=== PATIENT | female | born 1995 | race Caucasian/White ===

== ENCOUNTER → 2021-03-09 | Outpatient (CLI) | payer OTHER ==
--- NOTE | 2021-03-09 14:35 | USB ---
Reason for exam: clinical finding. History: Took hormonal contraceptives for 10 years. Physical Findings: Nurse did not find any significant physical abnormalities on exam. US Breast BILAT Right complete breast ultrasound includes all four quadrants, the retroareolar region and axilla. Finding demonstrates no cystic or solid lesion seen. Left complete breast ultrasound includes all four quadrants, the retroareolar region and axilla. Finding demonstrates no cystic or solid lesion seen. These results were verbally communicated with the patient and result sheet given to the patient on 03/09/21. ASSESSMENT: Negative, BI-RAD 1 RECOMMENDATION: Routine screening mammogram of both breasts at age 40. (unless clinical indication to start sooner) Manage on a clinical basis with regard to white nipple discharge. If clear or bloody spontaneous discharge from a single port on the nipple, further evaluation can be performed.
--- NOTE | 2021-03-09 17:32 | XR ---
EXAMINATION TYPE: XR foot complete bilateral DATE OF EXAM: 03/09/2021 Comparison: None Clinical History: 25-year-old female M79.671Pain in right foot TECHNIQUE: 3 views each side Findings: Joint spaces are maintained. No acute fracture, subluxation, or dislocation. No periostitis or osteol ysis. Normal variant os supra naviculare on the left. Smooth delineation to the Achilles tendon. Subt alar joints are aligned. On the oblique view of the right foot, there is questionable osteochondral lesion along the talar dom e. Impression: No acute osseous abnormality seen within either foot. Recommend dedicated views of the right ankle to exclude an osteochondral lesion of the talar dome.
--- NOTE | 2021-03-10 09:55 | P.ARTDOP ---
Arterial Doppler LOWER EXTREMITY ARTERIAL DOPPLER: DATE OF SERVICE: 03/09/2021 Reason for study: Bilateral foot pain. Doppler waveforms: Multiphasic bilaterally throughout. Pulse volume recording: []. Pressure gradients: None. Ankle-brachial indices: Greater than 1 bilaterally. Toe brachial indices: [] on the right, [] on the left Impression: Normal study..
== END | disposition home or self-care (01) ==
LOC: RADUSWWP 13:45
PROVIDERS: ATTEND Family Medicine
DX: N64.52 Nipple discharge (principal); M79.672 Pain in left foot; M79.671 Pain in right foot
CPT/HCPCS: 93922

== ENCOUNTER → 2024-04-23 | Outpatient (CLI) | payer OTHER ==
[2024-04-23 16:07] LABS: Basophils # (A) 0.1 k/uL (0-0.2); Basophils % (A) 1 %; Eosinophils # (A) 0.4 k/uL (0-0.7); Eosinophils % (A) 5 %; HCT 47.5 % (34.0-46.0); HGB 15.3 gm/dL (11.4-16.0); Lymphocytes # (A) 2.1 k/uL (1.0-4.8); Lymphocytes % (A) 23 %; MCH 31.8 pg (25.0-35.0); MCHC 32.2 g/dL (31.0-37.0); MCV 98.9 fL (80.0-100.0); Mean Platelet Volume 8.7; Monocytes # (A) 0.4 k/uL (0-1.0); Monocytes % (A) 5 %; Neutrophils # (A) 6.2 k/uL (1.3-7.7); Neutrophils % (A) 66 %; Platelet Count 228 k/uL (150-450); RDW 11.9 % (11.5-15.5); WBC 9.5 k/uL (3.8-10.6)
[2024-04-23 16:31] LABS: Partial Thromboplastin Time 24.2 sec (22.0-30.0)
[2024-04-23 16:42] LABS: Bilirubin,Urine Negative (Negative); Blood,Urine Negative (Negative); Glucose,Urine (UA) Negative (Negative); Ketones,Urine Negative (Negative); Leukocyte Esterase,Urine Negative (Negative); Nitrite,Urine Negative (Negative); Protein,Urine Negative (Negative); Urobilinogen,Urine <2.0 mg/dL (<2.0)
[2024-04-23 16:52] LABS: Appearance,Urine Clear (Clear); Color,Urine Colorless; Specific Gravity,Urine 1.003 (1.001-1.035)
[2024-04-24 03:03] LABS: ALT 12 U/L (8-44); AST 15 U/L (13-35); Albumin 4.6 g/dL (3.8-4.9); Alkaline Phosphatase 63 U/L (41-126); BUN/Creat Ratio 23.25 Ratio (12.00-20.00); Blood Urea Nitrogen 18.6 mg/dL (9.0-27.0); Calcium 9.4 mg/dL (8.7-10.3); Cancer Antigen 125 7.9 U/mL (0.0-30.1); Carbon Dioxide 20.8 mmol/L (21.6-31.8); Chloride 102 mmol/L (96-109); Chol/HDL Ratio 2.86 Ratio; Globulin 2.3 g/dL (1.6-3.3); Glucose 81 mg/dL (70-110); HCG,Quantitative Serum <3.0 mIU/mL (0.0-6.0); LDL Cholesterol,Calculated 96.5 mg/dL (0.0-131.0); Lipase 28 U/L (14-63); Sodium 137 mmol/L (135-145); Total Bilirubin 0.3 mg/dL (0.3-1.2); Total Protein 6.9 g/dL (6.2-8.2); VLDL Calculation 11.42 mg/dL (5.00-40.00)
[2024-04-24 03:35] LABS: % Iron Saturation 21.77 (12.00-45.00); Iron 81 UG/DL (50-170); T4, Free (Free Thyroxine) 1.15 ng/dL (0.80-1.80); Total Iron Binding Capacity 372 UG/DL (228-460)
[2024-04-24 03:58] LABS: Erythrocyte Sedimentation Rate 17 mm/Hr (0-20)
[2024-04-24 04:01] LABS: Follicle Stimulating Hormone 3.7 mIU/mL
[2024-04-24 05:28] LABS: Gliadin AB IgA, Deaminated Negative (Negative); Gliadin AB IgA, Unit 3.4 U/mL; Gliadin AB IgG, Deaminated Negative (Negative); Gliadin AB IgG, Unit <0.4 U/mL
== END | disposition home or self-care (01) ==
LOC: LABWHC1 15:25
PROVIDERS: ATTEND Family Medicine
DX: N64.3 Galactorrhea not associated with childbirth (principal); E66.9 Obesity, unspecified; R14.0 Abdominal distension (gaseous); R60.0 Localized edema; R23.2 Flushing; R70.0 Elevated erythrocyte sedimentation rate; R58 Hemorrhage, not elsewhere classified
CPT/HCPCS: 36415; 80053; 80061; 81003; 81025; 82668; 83001; 83002; 83036; 83516; 83520; 83540; 83550; 83690; 84146; 84439; 84443; 84702; 85025; 85379; 85652; 85730; 86304; 86316; 87086

== ENCOUNTER 2024-07-14 15:00 | Emergency (ER) | payer OTHER ==
[2024-07-14 15:17] VITALS: TEMP 98
[2024-07-14 16:28] LABS: Basophils # (A) 0.1 k/uL (0-0.2); Basophils % (A) 1 %; Eosinophils # (A) 0.1 k/uL (0-0.7); Eosinophils % (A) 1 %; HCT 39.6 % (34.0-46.0); HGB 13.3 gm/dL (11.4-16.0); Lymphocytes # (A) 1.6 k/uL (1.0-4.8); Lymphocytes % (A) 17 %; MCH 32.3 pg (25.0-35.0); MCHC 33.7 g/dL (31.0-37.0); MCV 95.8 fL (80.0-100.0); Mean Platelet Volume 8.3; Monocytes # (A) 0.4 k/uL (0-1.0); Monocytes % (A) 4 %; Neutrophils # (A) 7.3 k/uL (1.3-7.7); Neutrophils % (A) 77 %; Platelet Count 249 k/uL (150-450); RBC 4.13 m/uL (3.80-5.40); RDW 12.7 % (11.5-15.5); WBC 9.5 k/uL (3.8-10.6)
[2024-07-14 16:29] LABS: Appearance,Urine Clear (Clear); Bilirubin,Urine Negative (Negative); Blood,Urine Negative (Negative); Color,Urine Colorless; Glucose,Urine (UA) Negative (Negative); Ketones,Urine Trace (Negative); Leukocyte Esterase,Urine Negative (Negative); Nitrite,Urine Negative (Negative); PH, Urine 5.5 (5.0-8.0); Protein,Urine Negative (Negative); Specific Gravity,Urine 1.006 (1.001-1.035); Urobilinogen,Urine <2.0 mg/dL (<2.0)
[2024-07-14 16:39] LABS: ALT 13 U/L (4-34); AST 20 U/L (14-36); African American GFR (CKD) >90 (>60 ml/min/1.73 sqM); Albumin 3.8 g/dL (3.5-5.0); Alkaline Phosphatase 49 U/L (38-126); Anion Gap 6 mmol/L; Blood Urea Nitrogen 13 mg/dL (7-17); Calcium 9.1 mg/dL (8.4-10.2); Carbon Dioxide 23 mmol/L (22-30); Chloride 108 mmol/L (98-107); Glucose 86 mg/dL (74-99); Non-African American GFR(CKD) >90 (>60 ml/min/1.73 sqM); Potassium 3.9 mmol/L (3.5-5.1); Sodium 137 mmol/L (137-145); Total Bilirubin 0.3 mg/dL (0.2-1.3); Total Protein 6.2 g/dL (6.3-8.2)
--- NOTE | 2024-07-14 16:58 | ED ---
Female Urogenital HPI - General Chief complaint: Vaginal Bleeding Stated complaint: Vaginal bleeding Time Seen by Provider: 07/14/24 15:00 Source: patient, RN notes reviewed Mode of arrival: ambulatory Limitations: no limitations - History of Present Illness Initial comments: 28-year-old G1, P0 female at approximately 6 weeks gestation presenting to the ER for vaginal bleeding. States she had a positive test last week. 3 days ago. States she had a heavy amount of vaginal bleeding with abdominal cramps. She believes she had a miscarriage. She reports she is no longer vaginally bleeding. She is currently asymptomatic. - Related Data Allergies Allergy/AdvReac Type Severity Reaction Status Date / Time No Known Allergies Allergy Verified 07/14/24 15:17 Review of Systems ROS Statement: Those systems with pertinent positive or pertinent negative responses have been documented in the HPI. ROS Other: All systems not noted in ROS Statement are negative. Past Medical History History of Any Multi-Drug Resistant Organisms: None Reported Smoking Status: Never smoker Past Alcohol Use History: None Reported Past Drug Use History: None Reported General Exam Limitations: no limitations General appearance: alert, in no apparent distress Head exam: Present: atraumatic, normocephalic, normal inspection Eye exam: Present: normal appearance, PERRL, EOMI. Absent: scleral icterus, conjunctival injection, periorbital swelling Neck exam: Present: normal inspection. Absent: tenderness, meningismus, lymphadenopathy Respiratory exam: Present: normal lung sounds bilaterally. Absent: respiratory distress, wheezes, rales, rhonchi, stridor Cardiovascular Exam: Present: regular rate, normal rhythm, normal heart sounds. Absent: systolic murmur, diastolic murmur, rubs, gallop, clicks GI/Abdominal exam: Present: soft, normal bowel sounds. Absent: distended, tenderness, guarding, rebound, rigid Neurological exam: Present: alert, oriented X3 Psychiatric exam: Present: normal affect, normal mood Skin exam: Present: warm, dry, intact, normal color. Absent: rash Course Vital Signs 07/14/24 15:15 Temperature 98 F Pulse Rate 97 Respiratory 16 Rate Blood Pressure 119/75 O2 Sat by Pulse 100 Oximetry Medical Decision Making - Medical Decision Making Was pt. sent in by a medical professional or institution (, PA, TECHNICAL FELLOW, urgent care, hospital, or snf...) When possible be specific @ -No Did you speak to anyone other than the patient for history (EMS, parent, family, police, friend...)? What history was obtained from this source @ -No Did you review nursing and triage notes (agree or disagree)? Why? @ -I reviewed and agree with nursing and triage notes Were old charts reviewed (outside hosp., previous admission, EMS record, old EKG, old radiological studies, urgent care reports/EKG's, snf records)? Report findings @ -No old charts were reviewed Differential Diagnosis (chest pain, altered mental status, abdominal pain women, abdominal pain men, vaginal bleeding, weakness, fever, dyspnea, syncope, headache, dizziness, GI bleed, back pain, seizure, CVA, palpatations, mental health, musculoskeletal)? @ -Differential Vaginal Bleeding: Spontaneous , threatened , molar , ectopic , bloody show, incompetent cervix, abruptioplacenta, placenta previa, uterine rupture, dysfunctional uterine bleeding, hemorrhage, uterine fibroi ds, this is not meant to be an all-inclusive list. EKG interpreted by me (3pts min.). @ -None X-rays interpreted by me (1pt min.). @ -None done CT interpreted by me (1pt min.). @ -None done U/S interpreted by me (1pt. min.). @ -Ultrasound revealed single live intrauterine What testing was considered but not performed or refused? (CT, X-rays, U/S, labs)? Why? @ -None What meds were considered but not given or refused? Why? @ -None Did you discuss the management of the patient with other professionals (professionals i.e. , PA, TECHNICAL FELLOW, lab, RT, psych nurse, social services manager, blood bank specialist, teacher, child support officer, heel caser)? Give summary @ -No Was smoking cessation discussed for >3mins.? @ -No Was critical care preformed (if so, how long)? @ -No Were there social determinants of health that impacted care today? How? (Homelessness, low income, unemployed, alcoholism, drug addiction, [place] sportation, low edu. Level, literacy, decrease access to med. care, half-way, rehab)? @ -No Was there de-escalation of care discussed even if they declined (Discuss DNR or withdrawal of care, Hospice)? DNR status @ -No What co-morbidities impacted this encounter? (DM, HTN, Smoking, COPD, CAD, Cancer, CVA, ARF, Chemo, Hep., AIDS, mental health diagnosis, sleep apnea, morbid obesity)? @ -None Was patient admitted / discharged? Hospital course, mention meds given and route, prescriptions, significant lab abnormalities, going to OR and other pertinent info. @ -Patient was discharged. Patient was seen and evaluated for vaginal bleeding at approximately 6 weeks gestation. Patient is currently asymptomatic. Vital signs are within normal limits. Abdomen is nontender to palpation. Lab work including CBC, CMP, lactic acid is unremarkable. Beta hCG is 93,261. Transvaginal ultrasound revealed live intrauterine at approximately 6 weeks gestation. Urine is negative. Blood type is A-. Discussed diagnosis of threatened miscarriage with patient. RhoGAM given. Advised follow-up in 2 days with OB For repeat beta hCG levels. Patient is agreeable. Return precautions discussed. Case was discussed with my ED attending Dr. Pickard. Patient discharged in stable condition Undiagnosed new problem with uncertain prognosis? @ -No Drug Therapy requiring intensive monitoring for toxicity (Heparin, Nitro, Insulin, Cardizem)? @ -No Were any procedures done? @ -No Diagnosis/symptom? @ -Threatened Acute, or Chronic, or Acute on Chronic? @ -Acute Uncomplicated (without systemic symptoms) or Complicated (systemic symptoms)? @ -Uncomplicated Side effects of treatment? @ -No Exacerbation, Progression, or Severe Exacerbation? @ -No Poses a threat to life or bodily function? How? (Chest pain, [place], [place], pneumonia, PE, COPD, DKA, ARF, appy, cholecystitis, CVA, Diverticulitis, Homicidal, Suicidal, threat to staff... and all critical care pts) @ -No - Lab Data Result diagrams: 07/14/24 16:22 07/14/24 16:22 Lab Results 07/14/24 07/14/24 07/14/24 Range/Units 16:22 16:22 16:22 WBC (3.8-10.6) k/uL RBC (3.80-5.40) m/uL Hgb (11.4-16.0) gm/dL Hct (34.0-46.0) % MCV (80.0-100.0) fL MCH (25.0-35.0) pg MCHC (31.0-37.0) g/dL RDW (11.5-15.5) % Plt Count (150-450) k/uL MPV Neutrophils % % Lymphocytes % % Monocytes % % Eosinophils % % Basophils % % Neutrophils # (1.3-7.7) k/uL Lymphocytes # (1.0-4.8) k/uL Monocytes # (0-1.0) k/uL Eosinophils # (0-0.7) k/uL Basophils # (0-0.2) k/uL Sodium 137 (137-145) mmol/L Potassium 3.9 (3.5-5.1) mmol/L Chloride 108 H (98-107) mmol/L Carbon Dioxide 23 (22-30) mmol/L Anion Gap 6 mmol/L BUN 13 (7-17) mg/dL Creatinine 0.59 (0.52-1.04) mg/dL Est GFR (CKD-EPI)AfAm >90 (>60 ml/min/1.73 sqM) Est GFR (CKD-EPI)NonAf >90 (>60 ml/min/1.73 sqM) Glucose 86 (74-99) mg/dL Plasma Lactic Acid Saroj <0.5 L (0.7-2.0) mmol/L Calcium 9.1 (8.4-10.2) mg/dL Total Bilirubin 0.3 (0.2-1.3) mg/dL AST 20 (14-36) U/L ALT 13 (4-34) U/L Alkaline Phosphatase 49 (38-126) U/L Total Protein 6.2 L (6.3-8.2) g/dL Albumin 3.8 (3.5-5.0) g/dL HCG, Quant 14532.2 mIU/mL Urine Color Colorless Urine Appearance Clear (Clear) Urine pH 5.5 (5.0-8.0) Ur Specific Buckner 1.006 (1.001-1.035) Urine Protein Negative (Negative) Urine Glucose (UA) Negative (Negative) Urine Ketones Trace H (Negative) Urine Blood Negative (Negative) Urine Nitrite Negative (Negative) Urine Bilirubin Negative (Negative) Urine Urobilinogen <2.0 (<2.0) mg/dL Ur Leukocyte Esterase Negative (Negative) Blood Type Blood Type Recheck Bld Type Recheck Status Antibody Screen 08/25/24 08/25/24 Range/Units 16:22 16:22 WBC 9.5 (3.8-10.6) k/uL RBC 4.13 (3.80-5.40) m/uL Hgb 13.3 (11.4-16.0) gm/dL Hct 39.6 (34.0-46.0) % MCV 95.8 (80.0-100.0) fL MCH 32.3 (25.0-35.0) pg MCHC 33.7 (31.0-37.0) g/dL RDW 12.7 (11.5-15.5) % Plt Count 249 (150-450) k/uL MPV 8.3 Neutrophils % 77 % Lymphocytes % 17 % Monocytes % 4 % Eosinophils % 1 % Basophils % 1 % Neutrophils # 7.3 (1.3-7.7) k/uL Lymphocytes # 1.6 (1.0-4.8) k/uL Monocytes # 0.4 (0-1.0) k/uL Eosinophils # 0.1 (0-0.7) k/uL Basophils # 0.1 (0-0.2) k/uL Sodium (137-145) mmol/L Potassium (3.5-5.1) mmol/L Chloride (98-107) mmol/L Carbon Dioxide (22-30) mmol/L Anion Gap mmol/L BUN (7-17) mg/dL Creatinine (0.52-1.04) mg/dL Est GFR (CKD-EPI)AfAm (>60 ml/min/1.73 sqM) Est GFR (CKD-EPI)NonAf (>60 ml/min/1.73 sqM) Glucose (74-99) mg/dL Plasma Lactic Acid Saroj (0.7-2.0) mmol/L Calcium (8.4-10.2) mg/dL Total Bilirubin (0.2-1.3) mg/dL AST (14-36) U/L ALT (4-34) U/L Alkaline Phosphatase (38-126) U/L Total Protein (6.3-8.2) g/dL Albumin (3.5-5.0) g/dL HCG, Quant mIU/mL Urine Color Urine Appearance (Clear) Urine pH (5.0-8.0) Ur Specific Buckner (1.001-1.035) Urine Protein (Negative) Urine Glucose (UA) (Negative) Urine Ketones (Negative) Urine Blood (Negative) Urine Nitrite (Negative) Urine Bilirubin (Negative) Urine Urobilinogen (<2.0) mg/dL Ur Leukocyte Esterase (Negative) Blood Type A Negative Blood Type Recheck No Previous Record Bld Type Recheck Status CABO Indicated Antibody Screen NEGATIVE Disposition Clinical Impression: Threatened miscarriage Disposition: HOME SELF-CARE Condition: Stable Instructions (If sedation given, give patient instructions): Threatened Miscarriage (ED) Additional Instructions: Follow-up with OB in 2 days for repeat beta hCG levels. Please return to the Emergency Department if symptoms worsen or any other concerns. Is patient prescribed a controlled substance at d/c from ED?: No Referrals: Dariel Jamison DO [Primary Care Provider] - 1-2 days Time of Disposition: 18:42
--- NOTE | 2024-07-14 17:40 | US ---
EXAMINATION TYPE: Ultrasound OB <= 14 weeks transvaginal DATE OF EXAM: 07/14/2024 5:24 PM COMPARISON: NONE CLINICAL INDICATION: Female, 28 years old with history of vaginal bleeding in ; Vaginal blee ding. . EXAM PERFORMED: Transvaginal (TV) and Transabdominal (TA) EXAM MEASUREMENTS: GESTATIONAL AGE / DATING Physician Established: Not yet established. Dates by LMP: (6 weeks/4 days) EDC: 03/05/2025 Dates by First Scan: This is first scan Dates by Current Scan for: (6 weeks/4 days) EDC: 03/05/2025 MATERNAL ANATOMY Uterus: 9.6 x 6.5 x 4.8 cm. Right Ovary: 3.2 x 2.1 x 1.6 cm. Left Ovary: 2.9 x 2.5 x 1.8 cm. Area of mixed echogenicity and peripheral vascularity seen: 2.4 x 2.0 x 1.5 cm. Post CDS / Adnexa: *Free fluid seen in CDS and in right adnexa by the right ovary. Presence of free fluid: Yes, in CDS and right adnexa. Presence of corpus luteal cyst: Possible within left ovary, area of mixed echogenicity and peripheral vascularity seen: 2.4 x 2.0 x 1.5 cm. Presence of subchorionic bleed: Small hypoechoic area seen anterior to the gestational sac: 1.8 x 0.7 x 0.6 cm. GESTATION / SURVEY CRL: 0.66 cm (6 weeks/4 days) MSD: borders appear slightly irregular. Yolk Sac (normal less than 6mm): Not seen Heart Rate: 135 bpm Rhythm: Normal IUP: Viable IUP Date of LMP: 05/29/2024 Beta HcG (if available): Not available. IMPRESSION: 1. Single live intrauterine with estimated gestational age of 6 weeks 4 days by LMP. Curren t ultrasound biometry is concordant. 2. Recommend short interval follow-up as there is a small 1.8 cm perigestational bleed and the border s of the gestational sac are slightly irregular. 3. A 2.4 cm left ovarian corpus luteum. 4. Otherwise, complete survey recommended at 18-20 weeks.
[2024-07-14 18:19] LABS: HCG,Quantitative Serum 93261.2 mIU/mL
[2024-07-14] MEDS: Rhogam IMMUNE GLOBULIN 1,500 UNIT/1 ML IM ONE (20:31)
[2024-07-14 20:36] VITALS: RESP 18
[2024-07-14 20:38] VITALS: BP 112/69; PULSE 84
== END 2024-07-14 20:39 | disposition home or self-care (01) ==
LOC: EC 15:00
DX: O20.0 Threatened abortion (principal); Z3A.01 Less than 8 weeks gestation of pregnancy
CPT/HCPCS: 36415; 86900; 86901; 80053; 83605; 85025; 86850; 81003; 84702; 76801; 76817; 99284; 96372; J2790

== ENCOUNTER 2024-10-26 14:05 | Emergency (ER) | payer OTHER ==
[2024-10-26 14:10] VITALS: TEMP 98.2
--- NOTE | 2024-10-26 14:42 | ED ---
Female Urogenital HPI - General Chief complaint: Vaginal Bleeding Stated complaint: Vaginal bleeding Time Seen by Provider: 10/26/24 14:40 Source: patient, RN notes reviewed Mode of arrival: ambulatory Limitations: no limitations - History of Present Illness Initial comments: 29-year-old female presented to ER with a chief complaint of vaginal bleeding. Patient states she underwent D&C for demise approximately 1 month ago. This was completed in [place], [place]. Patient states after procedure he has she had normal postoperative bleeding that resolved. On 10-19-2024, she started her menstrual cycle which lasted 3 days. She states this was light flow. She typically has a 3-day light flow menstrual cycle. Patient reports yesterday she started to have intermittent vaginal bleeding. She states she will pass clots and a large amount of blood she describes it as "gushing". She states she soaks 1 pad an hour when this occurs. She denies any abdominal discomfort, urinary complaints or fevers. Patient does report she feels mildly lightheaded and dizzy but contributes this to blood loss. No blood thinner use. No shortness of breath no chest pain. - Related Data Allergies Allergy/AdvReac Type Severity Reaction Status Date / Time No Known Allergies Allergy Verified 10/26/24 14:06 Review of Systems ROS Statement: Those systems with pertinent positive or pertinent negative responses have been documented in the HPI. ROS Other: All systems not noted in ROS Statement are negative. Past Medical History Past Medical History: Asthma History of Any Multi-Drug Resistant Organisms: None Reported Additional Past Surgical History / Comment(s): D&C Smoking Status: Never smoker Past Alcohol Use History: None Reported Past Drug Use History: None Reported General Exam Limitations: no limitations General appearance: alert, in no apparent distress Respiratory exam: Present: normal lung sounds bilaterally. Absent: respiratory distress, wheezes, rales, rhonchi, stridor Cardiovascular Exam: Present: regular rate, normal rhythm, normal heart sounds. Absent: systolic murmur, diastolic murmur, rubs, gallop, clicks GI/Abdominal exam: Present: soft, normal bowel sounds. Absent: distended, tenderness, guarding, rebound, rigid External exam: Present: normal external exam Speculum exam: Present: vaginal bleeding (minimal) Neurological exam: Present: alert, oriented X3, CN II-XII intact Skin exam: Present: warm, dry, intact, normal color. Absent: rash Course Vital Signs 10/26/24 10/26/24 10/26/24 14:07 16:14 17:21 Temperature 98.2 F Pulse Rate 104 H 105 H 100 Respiratory 18 16 16 Rate Blood Pressure 136/84 126/77 114/78 O2 Sat by Pulse 99 100 100 Oximetry - Reevaluation(s) Reevaluation #1: 10/26/24 17:[address] Perez, on-call [employer], who advised on outpatient management with surgeon who completed D&C on Monday. Dr. Perez reviewed ultrasound herself. Medical Decision Making - Medical Decision Making Was pt. sent in by a medical professional or institution (, PA, ASPARAG[employer] CUTTER, urgent care, hospital, or halfway...) When possible be specific @ -No Did you speak to anyone other than the patient for history (EMS, parent, family, police, friend...)? What history was obtained from this source @ -No Did you review nursing and triage notes (agree or disagree)? Why? @ -I reviewed and agree with nursing and triage notes Were old charts reviewed (outside hosp., previous admission, EMS record, old EKG, old radiological studies, urgent care reports/EKG's, halfway records)? Report findings @ -No old charts were reviewed Differential Diagnosis (chest pain, altered mental status, abdominal pain women, abdominal pain men, vaginal bleeding, weakness, fever, dyspnea, syncope, headache, dizziness, GI bleed, back pain, seizure, CVA, palpatations, mental health, musculoskeletal)? @ -Differential Vaginal Bleeding:Spontaneous , threatened , molar , ectopic , bloody show, incompetent cervix, abruptioplacenta, placenta previa, uterine rupture, dysfunctional uterine bleeding, hemorrhage, uterine fibroids, this is not meant to be an all-inclusive list. EKG interpreted by me (3pts min.). @ -None done X-rays interpreted by me (1pt min.). @ -None done CT interpreted by me (1pt min.). @ -None done U/S interpreted by me (1pt. min.). @ -Transvaginal ultrasound showing a focal region of prominent vascularity in the posterior myometrium of the uterine body of indeterminate etiology. Uterine AV malformation in the differential. Hypoechoic lesion in the uterus possibly reflecting a small fibroid. What testing was considered but not performed or refused? (CT, X-rays, U/S, labs)? Why? @ -None What meds were considered but not given or refused? Why? @ -None Did you discuss the management of the patient with other professionals (hao mijares i.e. , PA, [employer]AR[employer] CUTTER, lab, RT, psych nurse, social media content specialist, shared services representative, teacher, corporate banking officer, family preservation caseworker)? Give summary @ -Yes, case was discussed in detail with Dr. Perez, avionics systems engineer [employer], who r eviewed ultrasound herself. She reports patient is stable for discharge with close follow-up with initial surgeon who completed D&C given patient's stable vital signs, hemoglobin and imaging results. Was smoking cessation discussed for >3mins.? @ -No Was critical care preformed (if so, how long)? @ -No Were there social determinants of health that impacted care today? How? (Homelessness, low income, unemployed, alcoholism, drug addiction, transportation, low edu. Level, literacy, decrease access to med. care, [facility], rehab)? @ -No Was there de-escalation of care discussed even if they declined (Discuss DNR or withdrawal of care, Hospice)? DNR status @ -No What co-morbidities impacted this encounter? (DM, HTN, Smoking, COPD, CAD, Cancer, CVA, ARF, Chemo, Hep., AIDS, mental health diagnosis, sleep apnea, morbid obesity)? @ -None Was patient admitted / discharged? Hospital course, mention meds given and route, prescriptions, significant lab abnormalities, going to OR and other pertinent info. @ -Discharged. 29 year old female presenting to the ER for evaluation of vaginal bleeding. History physical exam completed. Patient is tachycardic at 104 vitals otherwise stable. Abdominal exam benign. Pelvic exam chaperoned by Libertad Connell RN and remarkable for minimal cervical bleeding.. No wounds or lacerations. Cervical os closed. Laboratory studies and transvaginal ult rasound will be completed, patient is agreeable. Laboratory studies remarkable for a stable hemoglobin of 13.7. Serum hCG less than 2.4. Urine is hemorrhagic with large blood which is likely contaminated from vaginal bleeding. Transvaginal ultrasound showing a focal region of prominent vascularity in the posterior myometrium possibly uterine AVM. There is also a hypoechoic lesion of uterus possibly reflecting a small fibroid. Case was discussed in detail with on-call [employer], Dr. Perez, who reviewed ultrasound herself. She reports patient is stable for outpatient follow-up with initial surgeon who completed D&C. On reevaluation, patient resting comfortably in exam room no signs of acute distress. Patient does report that she is still bleeding. I reassured patient that she is stable for discharge and had a lengthy discussion about strict return parameters. Patient discharged in stable condition with follow-up to PCP. Patient verbally expressed understanding and agreement with care plan. Case discussed with ED attending, Dr. Cheney. Undiagnosed new problem with uncertain prognosis? @ -No Drug Therapy requiring intensive monitoring for toxicity (Heparin, Nitro, Insulin, Cardizem)? @ -No Were any procedures done? @ -No Diagnosis/symptom? @ -Abnormal uterine bleeding rule out uterine AVM/uterine fibroid Acute, or Chronic, or Acute on Chronic? @ -Acute Uncomplicated (without systemic symptoms) or Complicated (systemic symptoms)? @ -Uncomplicated Side effects of treatment? @ -No Exacerbation, Progression, or Severe Exacerbation? @ -No Poses a threat to life or bodily function? How? (Chest pain, [place], [place], pneumonia, PE, COPD, DKA, ARF, appy, cholecystitis, CVA, Diverticulitis, Homicidal, Suicidal, threat to staff... and all critical care pts) @ -Low at this time. - Lab Data Result diagrams: 10/26/24 14:55 10/26/24 14:55 Lab Results 10/26/24 10/26/24 10/26/24 Range/Units 14:48 14:55 14:55 WBC 12.5 H (3.8-10.6) k/uL RBC 4.26 (3.80-5.40) m/uL Hgb 13.7 (11.4-16.0) gm/dL Hct 41.2 (34.0-46.0) % MCV 96.6 (80.0-100.0) fL MCH 32.1 (25.0-35.0) pg MCHC 33.2 (31.0-37.0) g/dL RDW 11.6 (11.5-15.5) % Plt Count 286 (150-450) k/uL MPV 8.3 Neutrophils % 68 % Lymphocytes % 23 % Monocytes % 5 % Eosinophils % 2 % Basophils % 1 % Neutrophils # 8.6 H (1.3-7.7) k/uL Lymphocytes # 2.9 (1.0-4.8) k/uL Monocytes # 0.6 (0-1.0) k/uL Eosinophils # 0.3 (0-0.7) k/uL Basophils # 0.1 (0-0.2) k/uL Sodium 135 L (137-145) mmol/L Potassium 4.3 (3.5-5.1) mmol/L Chloride 107 (98-107) mmol/L Carbon Dioxide 22 (22-30) mmol/L Anion Gap 6 mmol/L BUN 15 (7-17) mg/dL Creatinine 0.80 (0.52-1.04) mg/dL Est GFR (CKD-EPI)AfAm >90 (>60 ml/min/1.73 sqM) Est GFR (CKD-EPI)NonAf >90 (>60 ml/min/1.73 sqM) Glucose 85 (74-99) mg/dL Calcium 8.8 (8.4-10.2) mg/dL Total Bilirubin 0.5 (0.2-1.3) mg/dL AST 22 (14-36) U/L ALT 13 (4-34) U/L Alkaline Phosphatase 64 (38-126) U/L Total Protein 6.8 (6.3-8.2) g/dL Albumin 4.0 (3.5-5.0) g/dL HCG, Quant <2.4 mIU/mL Urine Color Colorless Urine Appearance Clear (Clear) Urine pH 6.5 (5.0-8.0) Ur Specific [place] 1.003 (1.001-1.035) Urine Protein Negative (Negative) Urine Glucose (UA) Negative (Negative) Urine Ketones Negative (Negative) Urine Blood Large H (Negative) Urine Nitrite Negative (Negative) Urine Bilirubin Negative (Negative) Urine Urobilinogen <2.0 (<2.0) mg/dL Ur Leukocyte Esterase Negative (Negative) Urine RBC 3 (0-5) /hpf Urine WBC <1 (0-5) /hpf Ur Squamous Epith Cells 1 (0-4) /hpf Blood Type Blood Type Recheck Bld Type Recheck Status Antibody Screen Antibody Identification Direct Antiglob Test Spec Expiration Date 10/26/24 Range/Units 15:10 WBC (3.8-10.6) k/uL RBC (3.80-5.40) m/uL Hgb (11.4-16.0) gm/dL Hct (34.0-46.0) % MCV (80.0-100.0) fL MCH (25.0-35.0) pg MCHC (31.0-37.0) g/dL RDW (11.5-15.5) % Plt Count (150-450) k/uL MPV Neutrophils % % Lymphocytes % % Monocytes % % Eosinophils % % Basophils % % Neutrophils # (1.3-7.7) k/uL Lymphocytes # (1.0-4.8) k/uL Monocytes # (0-1.0) k/uL Eosinophils # (0-0.7) k/uL Basophils # (0-0.2) k/uL Sodium (137-145) mmol/L Potassium (3.5-5.1) mmol/L Chloride (98-107) mmol/L Carbon Dioxide (22-30) mmol/L Anion Gap mmol/L BUN (7-17) mg/dL Creatinine (0.52-1.04) mg/dL Est GFR (CKD-EPI)AfAm (>60 ml/min/1.73 sqM) Est GFR (CKD-EPI)NonAf (>60 ml/min/1.73 sqM) Glucose (74-99) mg/dL Calcium (8.4-10.2) mg/dL Total Bilirubin (0.2-1.3) mg/dL AST (14-36) U/L ALT (4-34) U/L Alkaline Phosphatase (38-126) U/L Total Protein (6.3-8.2) g/dL Albumin (3.5-5.0) g/dL HCG, Quant mIU/mL Urine Color Urine Appearance (Clear) Urine pH (5.0-8.0) Ur Specific [place] (1.001-1.035) Urine Protein (Negative) Urine Glucose (UA) (Negative) Urine Ketones (Negative) Urine Blood (Negative) Urine Nitrite (Negative) Urine Bilirubin (Negative) Urine Urobilinogen (<2.0) mg/dL Ur Leukocyte Esterase (Negative) Urine RBC (0-5) /hpf Urine WBC (0-5) /hpf Ur Squamous Epith Cells (0-4) /hpf Blood Type A Negative Blood Type Recheck A Neg Bld Type Recheck Status No Antibody Screen POSITIVE Antibody Identification See Comments Direct Antiglob Test Negative Spec Expiration Date 10/29/20242309 - Radiology Data Radiology results: report reviewed, image reviewed Disposition Clinical Impression: Abnormal uterine bleeding, Uterine fibroid Disposition: HOME SELF-CARE Condition: Stable Instructions (If sedation given, give patient instructions): Abnormal (Dysfunctional) Uterine Bleeding (ED) Additional Instructions: Follow-up with surgeon who completed D&C on Monday. Return to the ER for any worsening of bleeding, dizziness, lightheadedness or other concerns. Is patient prescribed a controlled substance at d/c from ED?: No Referrals: Dariel Jamison DO [Primary Care Provider] - 1-2 days Lupe Perez DO [Doctor of Osteopathic Medicine] - 1-2 days Time of Disposition: 16:54
[2024-10-26 15:08] LABS: Basophils # (A) 0.1 k/uL (0-0.2); Basophils % (A) 1 %; Eosinophils # (A) 0.3 k/uL (0-0.7); Eosinophils % (A) 2 %; HCT 41.2 % (34.0-46.0); HGB 13.7 gm/dL (11.4-16.0); Lymphocytes # (A) 2.9 k/uL (1.0-4.8); Lymphocytes % (A) 23 %; MCH 32.1 pg (25.0-35.0); MCHC 33.2 g/dL (31.0-37.0); MCV 96.6 fL (80.0-100.0); Mean Platelet Volume 8.3; Monocytes # (A) 0.6 k/uL (0-1.0); Monocytes % (A) 5 %; Neutrophils # (A) 8.6 k/uL (1.3-7.7); Neutrophils % (A) 68 %; Platelet Count 286 k/uL (150-450); RBC 4.26 m/uL (3.80-5.40); RDW 11.6 % (11.5-15.5); WBC 12.5 k/uL (3.8-10.6)
[2024-10-26 15:18] LABS: ALT 13 U/L (4-34); African American GFR (CKD) >90 (>60 ml/min/1.73 sqM); Anion Gap 6 mmol/L; Blood Urea Nitrogen 15 mg/dL (7-17); Calcium 8.8 mg/dL (8.4-10.2); Carbon Dioxide 22 mmol/L (22-30); Chloride 107 mmol/L (98-107); Glucose 85 mg/dL (74-99); Non-African American GFR(CKD) >90 (>60 ml/min/1.73 sqM); Sodium 135 mmol/L (137-145); Total Bilirubin 0.5 mg/dL (0.2-1.3); Total Protein 6.8 g/dL (6.3-8.2)
[2024-10-26 15:26] LABS: AST 22 U/L (14-36); Alkaline Phosphatase 64 U/L (38-126); Potassium 4.3 mmol/L (3.5-5.1)
[2024-10-26 15:34] LABS: HCG,Quantitative Serum <2.4 mIU/mL
[2024-10-26 15:46] LABS: Appearance,Urine Clear (Clear); Bilirubin,Urine Negative (Negative); Blood,Urine Large (Negative); Color,Urine Colorless; Glucose,Urine (UA) Negative (Negative); Ketones,Urine Negative (Negative); Leukocyte Esterase,Urine Negative (Negative); Nitrite,Urine Negative (Negative); PH, Urine 6.5 (5.0-8.0); Protein,Urine Negative (Negative); RBC,Urine 3 /hpf (0-5); Specific Gravity,Urine 1.003 (1.001-1.035); Squamous Epithelial Cell,Urine 1 /hpf (0-4); Urobilinogen,Urine <2.0 mg/dL (<2.0); WBC,Urine <1 /hpf (0-5)
--- NOTE | 2024-10-26 15:59 | US ---
EXAMINATION TYPE: US pelvis complete transvag DATE OF EXAM: 10/26/2024 COMPARISON: NONE CLINICAL INDICATION: Female, 29 years old with history of vag bleeding s/p D C 1 month ago; Abnormal bleeding. No pain. TECHNIQUE: Transvaginal (TV) and Transabdominal (TA) . Transabdominal grayscale sonographic images of the pelvis were acquired. Transvaginal sonographic im ages were medically necessary to better assess the following anatomy: Endometrium Doppler imaging: Not performed. FINDINGS: Date of LMP: 10/19/2024, EXAM MEASUREMENTS: Uterus: 8.7 x 4.7 x 4.0 cm Endometrial Stripe: 0.4 cm Right Ovary: 2.4 x 2.0 x 1.7 cm Left Ovary: 3.4 x 2.0 x 1.3 cm 1. Uterus: Anteverted Prominent vessels seen. Mid posterior hypoechoic lesion = 0.8 x 0.8 x 0.6 c m 2. Endometrium: Appears complex 3. Right Ovary: wnl 4. Left Ovary: wnl 5. Bilateral Adnexa: no free fluid 6. Posterior cul-de-sac: no free fluid IMPRESSION: 1. Focal region of prominent vascularity in the posterior myometrium of the uterine body which is in determinate. Uterine AV malformation would be a differential diagnostic consideration given stated cl inical history. 2. Hypoechoic lesion in the uterus possibly reflecting a small fibroid. [facility], , 10/26/2024 3:56 PM
[2024-10-26 16:23] VITALS: RESP 16
[2024-10-26 17:22] VITALS: BP 114/78; PULSE 100
== END 2024-10-26 17:40 | disposition home or self-care (01) ==
LOC: EC 14:05
DX: D25.9 Leiomyoma of uterus, unspecified (principal)
CPT/HCPCS: 36415; 76830; 76856; 80053; 81001; 84702; 85025; 86850; 86870; 86880; 86900; 86901; 99284

== ENCOUNTER → 2024-11-27 | Outpatient (CLI) | payer OTHER ==
[2024-11-27 20:04] LABS: ALT 18 U/L (8-44); AST 20 U/L (13-35); Albumin 4.4 g/dL (3.8-4.9); Albumin/Globulin Ratio 1.83 Ratio (1.60-3.17); Alkaline Phosphatase 65 U/L (41-126); Blood Urea Nitrogen 15.9 mg/dL (9.0-27.0); Calcium 9.3 mg/dL (8.7-10.3); Chloride 104 mmol/L (96-109); Chol/HDL Ratio 3.27 Ratio; Globulin 2.4 g/dL (1.6-3.3); Glucose 86 mg/dL (70-110); LDL Cholesterol,Calculated 100.9 mg/dL (0.0-131.0); Potassium 3.9 mmol/L (3.5-5.5); Sodium 139 mmol/L (135-145); Total Bilirubin 0.3 mg/dL (0.3-1.2); Total Protein 6.8 g/dL (6.2-8.2); VLDL Calculation 15.04 mg/dL (5.00-40.00)
[2024-11-27 20:18] LABS: Basophils # (A) 0.07 X 10*3/uL (0.00-0.10); Basophils % (A) 0.9 %; Eosinophils # (A) 0.15 X 10*3/uL (0.04-0.35); Eosinophils % (A) 1.9 %; HCT 42.6 % (37.2-46.3); HGB 14.1 g/dL (12.0-15.0); Lymphocytes # (A) 1.62 X 10*3/uL (0.90-5.00); Lymphocytes % (A) 20.3 %; MCH 31.1 pg (27.0-32.0); MCHC 33.1 g/dL (32.0-37.0); MCV 93.8 FL (80.0-97.0); Mean Platelet Volume 12.1 FL (9.5-12.2); NRBC Per 100 WBC 0 X 10*3/uL (0.00-0.01); Neutrophils # (A) 5.71 X 10*3/uL (1.80-7.70); Neutrophils % (A) 71.6 %; Platelet Count 218 X 10*3/uL (140-440); RBC 4.54 X 10*6/uL (4.10-5.20); RDW 12.3 % (11.5-14.5); WBC 7.97 X 10*3/uL (4.50-10.00)
== END | disposition home or self-care (01) ==
LOC: LABWHC1 16:02
PROVIDERS: ATTEND Family Medicine
DX: E66.3 Overweight (principal)
CPT/HCPCS: 36415; 80053; 80061; 83036; 84436; 84443; 85025

== ENCOUNTER → 2024-12-19 | Outpatient (CLI) | payer OTHER ==
[2024-12-19 19:53] LABS: Hepatitis A Antibody IgM Nonreactive (Nonreactive); Hepatitis B Core IgM Nonreactive (Nonreactive); Hepatitis B Surface Antigen Nonreactive (Nonreactive); Hepatitis C IgG Antibody Nonreactive (Nonreactive); Thyroid Peroxidase Antibodies <9.0 U/mL (0.0-33.0)
[2024-12-19 19:54] LABS: C Reactive Protein <0.30 mg/dL (0.00-0.80); Rheumatoid Factor, Qnt <15 IU/mL (0-15); T4, Free (Free Thyroxine) 1.02 ng/dL (0.80-1.80); Uric Acid 4.3 mg/dL (2.9-7.7)
[2024-12-19 21:43] LABS: Anti-DNA, DS unit <1.0 IU/mL; DNA Double-Stranded Negative (Negative)
[2024-12-19 22:26] LABS: Cyclic Citrull Pep IgG Unit <1.5 U/mL (<=3.9); Cyclic Citrullinated Pep IgG Negative
[2024-12-20 08:48] LABS: Protein, Total 6.6 g/dL (5.7-8.2)
[2024-12-20 10:35] LABS: Angiotensin-1 Converting Enz. 22 U/L (8-52)
[2024-12-20 14:05] LABS: C-ANCA <1:20 Titer (<1:20)
== END | disposition home or self-care (01) ==
LOC: LABWHC1 13:44
PROVIDERS: ATTEND Family Medicine
DX: N64.3 Galactorrhea not associated with childbirth (principal); R70.0 Elevated erythrocyte sedimentation rate; R53.83 Other fatigue
CPT/HCPCS: 36415; 80074; 82164; 84146; 84165; 84432; 84439; 84443; 84481; 84550; 85652; 86140; 86200; 86225; 86235; 86255; 86376; 86431; 86618; 86800

== ENCOUNTER 2025-06-10 10:57 | Emergency (ER) | payer OTHER ==
--- NOTE | 2025-06-10 11:56 | ED ---
General Adult HPI - General Chief complaint: Weakness Stated complaint: Weakness Time Seen by Provider: 06/10/25 11:11 Source: patient, RN notes reviewed Mode of arrival: ambulatory Limitations: no limitations - History of Present Illness Initial comments: Discharge. 71-year male presenting with suprapubic catheter malfunction. On my evaluation the patient nursing staff is in the room with the patient which is successfully flushed his catheter and has been draining appropriately. After patient's catheter has been flushed he states that his pain is completely resolved and is feeling 100% better. I reviewed patient's urine culture which revealed growth of ESBL MD R0 which is susceptible to Bactrim. Patient is provided with outpatient prescription for Bactrim and is instructed to follow-up with primary care provider and/or urologist after antibiotics are completed to ensure infection has resolved. Return parameters discussed. Case discussed with my attending Dr. Frank. - Related Data Home Medications Medication Instructions Recorded Confirmed Cabergoline 0.5 mg PO MO 06/10/25 06/10/25 EPINEPHrine (Auto Inject) [Epipen] 0.3 mg IM ONCE PRN 06/10/25 06/10/25 Fluticasone Propion/Salmeterol 1 puff INHALATION RT-BID 06/10/25 06/10/25 [Advair 250-50 Diskus] Ibuprofen [Motrin Ib] 600 mg PO Q8H PRN 06/10/25 06/10/25 Loratadine [Claritin] 10 mg PO DAILY PRN 06/10/25 06/10/25 valACYclovir HCL [Valtrex] 1,000 mg PO DAILY PRN 06/10/25 06/10/25 Allergies Allergy/AdvReac Type Severity Reaction Status Date / Time No Known Allergies Allergy Verified 06/10/25 11:48 Review of Systems ROS Statement: Those systems with pertinent positive or pertinent negative responses have been documented in the HPI. ROS Other: All systems not noted in ROS Statement are negative. Past Medical History Past Medical History: Asthma History of Any Multi-Drug Resistant Organisms: None Reported Additional Past Surgical History / Comment(s): D&C Past Psychological History: No Psychological Hx Reported Smoking Status: Never smoker Past Alcohol Use History: None Reported Past Drug Use History: None Reported General Exam Limitations: no limitations Neck exam: Present: normal inspection. Absent: tenderness, meningismus, lymphadenopathy Respiratory exam: Present: normal lung sounds bilaterally. Absent: respiratory distress, wheezes, rales, rhonchi, stridor Cardiovascular Exam: Present: regular rate, normal rhythm, normal heart sounds. Absent: systolic murmur, diastolic murmur, rubs, gallop, clicks GI/Abdominal exam: Present: soft, normal bowel sounds. Absent: distended, tenderness, guarding, rebound, rigid Extremities exam: Present: normal inspection, full ROM, normal capillary refill. Absent: tenderness, pedal edema, joint swelling, calf tenderness Back exam: Present: normal inspection Neurological exam: Present: alert, oriented X3, CN II-XII intact Course Vital Signs 06/10/25 06/10/25 11:03 12:03 Temperature 97.5 F L Pulse Rate 116 H 85 Respiratory 18 16 Rate Blood Pressure 127/77 110/72 O2 Sat by Pulse 98 99 Oximetry Medical Decision Making - Medical Decision Making Was pt. sent in by a medical professional or institution (, PA, NURSERY RN, urgent care, hospital, or detention...) When possible be specific @ -No Did you speak to anyone other than the patient for history (EMS, parent, family, police, friend...)? What history was obtained from this source @ -No Did you review nursing and triage notes (agree or disagree)? Why? @ -I reviewed and agree with nursing and triage notes Were old charts reviewed (outside hosp., previous admission, EMS record, old EKG, old radiological studies, urgent care reports/EKG's, detention records)? Report findings @ -No old charts were reviewed Differential Diagnosis (chest pain, altered mental status, abdominal pain women, abdominal pain men, vaginal bleeding, weakness, fever, dyspnea, syncope, headache, dizziness, GI bleed, back pain, seizure, CVA, palpatations, mental health, musculoskeletal)? @ -Differential Weakness: Hypoglycemia, shock, sepsis, hyponatremia, anemia, infection, ID, ETOH, adverse medicine reaction, overdose, stroke, this is not meant to be an all-inclusive list. EKG interpreted by me (3pts min.). @ -Completed at 1111 sinus rhythm at a ventricular of 98, MN interval 133, QRS 100, QT 347, QTc 402. X-rays interpreted by me (1pt min.). @ -None done CT interpreted by me (1pt min.). @ -None done U/S interpreted by me (1pt. min.). @ -None done What testing was considered but not performed or refused? (CT, X-rays, U/S, labs)? Why? @ -None What meds were considered but not given or refused? Why? @ -None Did you discuss the management of the patient with other professionals (professionals i.e. Dr., PA, NURSERY RN, lab, RT, psych nurse, clinical social worker, grinder operator external tool, teacher, personnel officer, foster care case manager)? Give summary @ -No Was smoking cessation discussed for >3mins.? @ -No Was critical care preformed (if so, how long)? @ -No Were there social determinants of health that impacted care today? How? (Homelessness, low income, unemployed, alcoholism, drug addiction, transpor tation, low edu. Level, literacy, decrease access to med. care, shelter, rehab)? @ -No Was there de-escalation of care discussed even if they declined (Discuss DNR or withdrawal of care, Hospice)? DNR status @ -No What co-morbidities impacted this encounter? (DM, HTN, Smoking, COPD, CAD, Cancer, CVA, ARF, Chemo, Hep., AIDS, mental health diagnosis, sleep apnea, morbid obesity)? @ -None Was patient admitted / discharged? Hospital course, mention meds given and route, prescriptions, significant lab abnormalities, going to OR and other pertinent info. @ -Discharge. 29-year-old presenting with complaints of generalized weakness and fatigue. Patient is mildly tachycardic on arrival with heart rate 116. Overall she is well-appearing no signs respite physical examination is relatively unremarkable. EKG is in sinus rhythm. She is provided with IV fluids. Laboratory testing is unremarkable including CBC, CMP, TSH. Urinalysis reveals no signs of infection, hCG is negative. On reevaluation patient has that she is feeling mildly better. Recommend follow-up with primary care janii karli for further evaluation. Case discussed with my attending Dr. Frank. Undiagnosed new problem with uncertain prognosis? @ -No Drug Therapy requiring intensive monitoring for toxicity (Heparin, Nitro, Insulin, Cardizem)? @ -No Were any procedures done? @ -No Diagnosis/symptom? @ -Fatigue, generalized weakness Acute, or Chronic, or Acute on Chronic? @ -Acute Uncomplicated (without systemic symptoms) or Complicated (systemic symptoms)? @ -Uncomplicated Side effects of treatment? @ -No Exacerbation, Progression, or Severe Exacerbation? @ -No Poses a threat to life or bodily function? How? (Chest pain, USA, ID, pneumonia, PE, COPD, DKA, ARF, appy, cholecystitis, CVA, Diverticulitis, Homicidal, Suicidal, threat to staff... and all critical care pts) @ -No - Lab Data Result diagrams: 06/10/25 11:57 06/10/25 11:57 Lab Results 06/10/25 06/10/25 06/10/25 Range/Units 11:57 11:57 11:57 WBC 7.50 (4.50-10.00) 10*3/uL RBC 4.39 (4.10-5.20) 10*6/uL Hgb 14.2 (12.0-15.0) g/dL Hct 41.6 (37.2-46.3) % MCV 94.8 (80.0-97.0) fL MCH 32.3 H (27.0-32.0) pg MCHC 34.1 (32.0-37.0) g/dL Plt Count 213 (140-440) 10*3/uL MPV 11.3 (9.5-12.2) fL Immature Gran % (Auto) 0.3 % Neutrophils % 70.5 % Lymphocytes % 19.2 % Monocytes % 6.5 % Eosinophils % 2.7 % Basophils % 0.8 % Immature Gran # 0.02 (0.00-0.04) 10*3/uL Neutrophils # 5.29 (1.80-7.70) 10*3/uL Lymphocytes # 1.44 (0.90-5.00) 10*3/uL Monocytes # 0.49 (0.20-1.00) 10*3/uL Eosinophils # 0.20 (0.04-0.35) 10*3/uL Basophils # 0.06 (0.00-0.10) 10*3/uL Sodium (137-145) mmol/L Potassium (3.5-5.1) mmol/L Chloride (98-107) mmol/L Carbon Dioxide (22-30) mmol/L Anion Gap mmol/L BUN (7-17) mg/dL Creatinine (0.52-1.04) mg/dL Est GFR (CKD-EPI)AfAm (>60 ml/min/1.73 sqM) Est GFR (CKD-EPI)NonAf (>60 ml/min/1.73 sqM) Glucose (74-99) mg/dL Calcium (8.4-10.2) mg/dL Magnesium (1.6-2.3) mg/dL Total Bilirubin (0.2-1.3) mg/dL AST (14-36) U/L ALT (4-34) U/L Alkaline Phosphatase (38-126) U/L Total Protein (6.3-8.2) g/dL Albumin (3.5-5.0) g/dL TSH (0.465-4.680) mIU/L Urine Color Colorless Urine Appearance Clear (Clear) Urine pH 6.5 (5.0-8.0) Ur Specific [place] 1.005 (1.001-1.035) Urine Protein Negative (Negative) Urine Glucose (UA) Negative (Negative) Urine Ketones Negative (Negative) Urine Blood Negative (Negative) Urine Nitrite Negative (Negative) Urine Bilirubin Negative (Negative) Urine Urobilinogen <2.0 (<2.0) mg/dL Ur Leukocyte Esterase Negative (Negative) Urine HCG, Qual Not Detected (Not Detectd) 06/10/25 06/10/25 Range/Units 11:57 12:15 WBC (4.50-10.00) 10*3/uL RBC (4.10-5.20) 10*6/uL Hgb (12.0-15.0) g/dL Hct (37.2-46.3) % MCV (80.0-97.0) fL MCH (27.0-32.0) pg MCHC (32.0-37.0) g/dL Plt Count (140-440) 10*3/uL MPV (9.5-12.2) fL Immature Gran % (Auto) % Neutrophils % % Lymphocytes % % Monocytes % % Eosinophils % % Basophils % % Immature Gran # (0.00-0.04) 10*3/uL Neutrophils # (1.80-7.70) 10*3/uL Lymphocytes # (0.90-5.00) 10*3/uL Monocytes # (0.20-1.00) 10*3/uL Eosinophils # (0.04-0.35) 10*3/uL Basophils # (0.00-0.10) 10*3/uL Sodium 139 (137-145) mmol/L Potassium 4.0 (3.5-5.1) mmol/L Chloride 108 H (98-107) mmol/L Carbon Dioxide 21 L (22-30) mmol/L Anion Gap 10 mmol/L BUN 11 (7-17) mg/dL Creatinine 0.72 (0.52-1.04) mg/dL Est GFR (CKD-EPI)AfAm >90 (>60 ml/min/1.73 sqM) Est GFR (CKD-EPI)NonAf >90 (>60 ml/min/1.73 sqM) Glucose 88 (74-99) mg/dL Calcium 9.2 (8.4-10.2) mg/dL Magnesium 1.8 (1.6-2.3) mg/dL Total Bilirubin 0.8 (0.2-1.3) mg/dL AST 20 (14-36) U/L ALT 12 (4-34) U/L Alkaline Phosphatase 45 (38-126) U/L Total Protein 6.7 (6.3-8.2) g/dL Albumin 4.1 (3.5-5.0) g/dL TSH 1.480 (0.465-4.680) mIU/L Urine Color Urine Appearance (Clear) Urine pH (5.0-8.0) Ur Specific [place] (1.001-1.035) Urine Protein (Negative) Urine Glucose (UA) (Negative) Urine Ketones (Negative) Urine Blood (Negative) Urine Nitrite (Negative) Urine Bilirubin (Negative) Urine Urobilinogen (<2.0) mg/dL Ur Leukocyte Esterase (Negative) Urine HCG, Qual (Not Detectd) Disposition Clinical Impression: Fatigue Disposition: HOME SELF-CARE Condition: Good Instructions (If sedation given, give patient instructions): Fatigue (ED) Additional Instructions: Please return to the Emergency Department if symptoms worsen or any other concerns. Is patient prescribed a controlled substance at d/c from ED?: No Referrals: Dariel Jamison DO [Primary Care Provider] - 1-2 days Time of Disposition: 13:56
[2025-06-10] MEDS: SODIUM CHLORIDE 0.9% 1,000 ML IV ONE (11:58)
[2025-06-10 12:11] LABS: Basophils # (A) 0.06 10*3/uL (0.00-0.10); Basophils % (A) 0.8 %; Eosinophils # (A) 0.20 10*3/uL (0.04-0.35); Eosinophils % (A) 2.7 %; HCT 41.6 % (37.2-46.3); HGB 14.2 g/dL (12.0-15.0); Lymphocytes # (A) 1.44 10*3/uL (0.90-5.00); Lymphocytes % (A) 19.2 %; MCH 32.3 pg (27.0-32.0); MCHC 34.1 g/dL (32.0-37.0); MCV 94.8 fL (80.0-97.0); Monocytes # (A) 0.49 10*3/uL (0.20-1.00); Monocytes % (A) 6.5 %; Neutrophils # (A) 5.29 10*3/uL (1.80-7.70); Neutrophils % (A) 70.5 %; Platelet Count 213 10*3/uL (140-440); RBC 4.39 10*6/uL (4.10-5.20); RDW 12.3 % (11.5-14.5); WBC 7.50 10*3/uL (4.50-10.00)
[2025-06-10 12:16] LABS: Bilirubin,Urine Negative (Negative); Blood,Urine Negative (Negative); Color,Urine Colorless; Glucose,Urine (UA) Negative (Negative); Ketones,Urine Negative (Negative); Leukocyte Esterase,Urine Negative (Negative); Nitrite,Urine Negative (Negative); PH, Urine 6.5 (5.0-8.0); Protein,Urine Negative (Negative); Specific Gravity,Urine 1.005 (1.001-1.035); Urobilinogen,Urine <2.0 mg/dL (<2.0)
[2025-06-10 12:27] LABS: ALT 12 U/L (4-34); AST 20 U/L (14-36); African American GFR (CKD) >90 (>60 ml/min/1.73 sqM); Albumin 4.1 g/dL (3.5-5.0); Alkaline Phosphatase 45 U/L (38-126); Anion Gap 10 mmol/L; Blood Urea Nitrogen 11 mg/dL (7-17); Calcium 9.2 mg/dL (8.4-10.2); Carbon Dioxide 21 mmol/L (22-30); Chloride 108 mmol/L (98-107); Glucose 88 mg/dL (74-99); Magnesium 1.8 mg/dL (1.6-2.3); Non-African American GFR(CKD) >90 (>60 ml/min/1.73 sqM); Potassium 4.0 mmol/L (3.5-5.1); Sodium 139 mmol/L (137-145); Total Protein 6.7 g/dL (6.3-8.2)
[2025-06-10 14:30] VITALS: BP 110/65; PULSE 89; RESP 18; TEMP 98.3
== END 2025-06-10 14:36 | disposition home or self-care (01) ==
LOC: EC 10:57
DX: R53.1 Weakness (principal); R53.83 Other fatigue
CPT/HCPCS: 36415; 80053; 81003; 81025; 83735; 84443; 85025; 93005; 96360; 96361; 99285